=== PATIENT | female | born 1965 | race Caucasian/White ===

== ENCOUNTER → 2018-06-04 | Outpatient (CLI) | payer BC ==
--- NOTE | 2018-06-06 17:33 | MR ---
MR left hip HISTORY: Left hip pain Multiplanar multisequence imaging through the left hip. Bone marrow signal is maintained. No sizable joint effusion. Mild fluid signal present at the level o f the greater trochanters is noted on T2-weighted sequences, slightly greater on the right than on th e left, there may be bursitis or moderate luteal tendinosis. Suspect partial insertional tears of the gluteus medius insertions bilaterally, 5 mm on the left and 8 mm on the right on axial fat suppressi on image #9. Small bony excrescence is noted the junction of the femoral neck and femoral head on coronal cone-mulu n image #10 could possibly be related to femoral acetabular impingement. Sacroiliac joints are symmetric and maintained. No evident spinal stenosis at the lumbosacral junctio n. Articular cartilage signal is maintained. Acetabular labrum on the left shows on sagittal image #1 6 and 17 and coronal image 9 some increased signal suggestive of tear. IMPRESSION: Constellation of findings described above to include possible labral tear, correlate for femoral acetabular impingement, possible gluteal insertional tears or trochanteric bursitis.
== END | disposition home or self-care (01) ==
LOC: RADMRIMAIN 15:32
PROVIDERS: ATTEND Orthopaedic Surgery
DX: M25.552 Pain in left hip (principal)

== ENCOUNTER 2018-10-24 16:47 | Emergency (ER) | payer BC ==
--- NOTE | 2018-10-24 18:22 | ED ---
General Adult HPI - General Chief complaint: Nausea/Vomiting/Diarrhea Stated complaint: Diarrhea Time Seen by Provider: 10/24/18 17:48 Source: patient, RN notes reviewed, old records reviewed Mode of arrival: ambulatory Limitations: no limitations - History of Present Illness Initial comments: 53-year-old female patient with past medical history of pelvic sling procedure, otherwise no pertinent past medical history presents to ED with 5 days of diarrhea. Patient reports that her stools are watery, reports that she has approximately 2 per day. Patient denies any blood in stools. Patient denies any abdominal pain. Patient denies any nausea or vomiting. Patient denies any fevers or chills. Patient denies any chest pain or shortness of breath. Patient denies all other complaints. Systemic: Pt denies fatigue, myalgia, fever/chills, rash. Pt denies weakness, night sweats, weight loss. Neuro: Pt denies headache, visual disturbances, syncope or pre-syncope. HEENT: Pt denies ocular discharge or irritation, otalgia, rhinorrhea, pharyngitis or notable lymphadenopathy. Cardiopulmonary: Pt denies chest pain, SOB, heart palpitations, dyspnea on exertion. Abdominal/GI: Pt denies abdominal pain, n/v/. : Pt denies dysuria, burning w/ urination, frequency/urgency. Denies new onset urinary or bowel incontinence. MSK: Pt denies myalgia, loss of strength or function in extremities. Neuro: Pt denies new onset weakness, paresthesias. - Related Data Home Medications Medication Instructions Recorded Confirmed Cholecalciferol [Vitamin D3] 1,000 unit PO DAILY 10/24/18 10/24/18 Allergies Allergy/AdvReac Type Severity Reaction Status Date / Time No Known Allergies Allergy Verified 10/24/18 18:34 Review of Systems ROS Statement: Those systems with pertinent positive or pertinent negative responses have been documented in the HPI. ROS Other: All systems not noted in ROS Statement are negative. Past Medical History Past Medical History: No Reported History History of Any Multi-Drug Resistant Organisms: None Reported Past Surgical History: No Surgical Hx Reported Past Psychological History: No Psychological Hx Reported Smoking Status: Never smoker Past Alcohol Use History: Occasional Past Drug Use History: None Reported General Exam - General Exam Comments Initial Comments: Constitutional: NAD, AOX3, Pt has pleasant affect. HEENT: NC/AT, trachea midline, neck supple, no lymphadenopathy. Posterior pharynx non erythematous, without exudates. External ears appear normal, without discharge. Mucous membranes moist. Eyes PERRLA, EOM intact. There is no scleral icterus. No pallor noted. Cardiopulmonary: RRR, no murmurs, rubs or gallops, no JVD noted. Lungs CTAB in anterior and posterior fuentes. No peripheral edema. Abdominal exam: Abdomen soft and non-distended. Abdomen non-tender to palpation in all 4 quadrants. Bowel sounds active in LLQ. No hepatosplenomegaly. No ecchymosis Neuro: CN II-XII grossly intact. No nuchal rigidity. MSK: No posterior calf tenderness bilaterally, homans sign negative bilaterally. Posterior tibialis and radial pulse +2 bilaterally. Sensation intact in upper and lower extremities. Full active ROM in upper and lower extremities, 5/5 stregnth. Limitations: no limitations Course Vital Signs 10/24/18 10/24/18 10/24/18 16:54 18:49 21:04 Temperature 98 F 98.2 F Pulse Rate 82 70 62 Respiratory 16 18 16 Rate Blood Pressure 130/70 124/85 123/84 O2 Sat by Pulse 99 98 97 Oximetry Medical Decision Making - Medical Decision Making 53-year-old female patient with past medical history of pelvic sling procedure, otherwise no pertinent past medical history presents to ED with 5 days of diarrhea. Patient reports that her stools are watery, reports that she has approximately 2 per day. Patient denies any blood in stools. Patient denies any abdominal pain. Patient denies any nausea or vomiting. Patient denies any fevers or chills. Patient denies any chest pain or shortness of breath. Patient denies all other complaints. Pt VSS, afebrile. Physical exam did not display acute pathology, abdomen nontender to palpation. Laboratory investigations revealed nonimpressive CBC, CMP. Occult blood negative. Fecal culture and leukocytes pending. Patient did have formed stool in ED. Due to still being formed patient unable to be tested for Clostridium difficile. KUB displayed a nonacute abdomen. Long discussion with patient about causes of diarrhea, dietary modifications. Patient verbalized understanding. Patient to be discharged with follow-up with primary care provider in 1-2 days for continued evaluation. Patient given GI consult if symptoms continue. Patient to return to ED if condition worsens in any way. Case discussed with Dr. Connolly. - Lab Data Result diagrams: 10/24/18 18:42 10/24/18 18:42 Lab Results 10/24/18 10/24/18 10/24/18 Range/Units 18:42 18:42 20:25 WBC 5.1 (3.8-10.6) k/uL RBC 4.45 (3.80-5.40) m/uL Hgb 13.8 (11.4-16.0) gm/dL Hct 43.0 (34.0-46.0) % MCV 96.6 (80.0-100.0) fL MCH 31.0 (25.0-35.0) pg MCHC 32.0 (31.0-37.0) g/dL RDW 12.9 (11.5-15.5) % Plt Count 218 (150-450) k/uL Neutrophils % 52 % Lymphocytes % 34 % Monocytes % 6 % Eosinophils % 3 % Basophils % 1 % Neutrophils # 2.7 (1.3-7.7) k/uL Lymphocytes # 1.8 (1.0-4.8) k/uL Monocytes # 0.3 (0-1.0) k/uL Eosinophils # 0.1 (0-0.7) k/uL Basophils # 0.0 (0-0.2) k/uL Sodium 141 (137-145) mmol/L Potassium 4.1 (3.5-5.1) mmol/L Chloride 107 (98-107) mmol/L Carbon Dioxide 27 (22-30) mmol/L Anion Gap 7 mmol/L BUN 14 (7-17) mg/dL Creatinine 0.58 (0.52-1.04) mg/dL Est GFR (CKD-EPI)AfAm >90 (>60 ml/min/1.73 sqM) Est GFR (CKD-EPI)NonAf >90 (>60 ml/min/1.73 sqM) Glucose 106 H (74-99) mg/dL Calcium 9.4 (8.4-10.2) mg/dL Total Bilirubin 0.3 (0.2-1.3) mg/dL AST 26 (14-36) U/L ALT 30 (9-52) U/L Alkaline Phosphatase 78 (38-126) U/L Total Protein 6.7 (6.3-8.2) g/dL Albumin 4.1 (3.5-5.0) g/dL Stool Occult Blood Negative (Negative) Disposition Clinical Impression: Diarrhea Disposition: HOME SELF-CARE Condition: Stable Instructions (If sedation given, give patient instructions): Acute Diarrhea (ED ), Chronic Diarrhea (ED), Nutrition Tips for Relief of Diarrhea (ED) Additional Instructions: Patient to adhere to previously discussed treatment plan and will take medication(s) as directed. Patient to follow up with PCP in 1-2 days. Patient to return to ED if symptoms do not improve. Please follow-up with primary care provider for continued evaluation. Please call GI consult if symptoms continue. Is patient prescribed a controlled substance at d/c from ED?: No Referrals: None,Stated [Primary Care Provider] - 1-2 days Antonio Thrasher MD [STAFF PHYSICIAN] - 1-2 days
[2018-10-24 19:19] LABS: ALT 30 U/L (9-52); AST 26 U/L (14-36); Albumin 4.1 g/dL (3.5-5.0); Alkaline Phosphatase 78 U/L (38-126); Anion Gap 7 mmol/L; Blood Urea Nitrogen 14 mg/dL (7-17); Calcium 9.4 mg/dL (8.4-10.2); Carbon Dioxide 27 mmol/L (22-30); Chloride 107 mmol/L (98-107); Glucose 106 mg/dL (74-99); Potassium 4.1 mmol/L (3.5-5.1); Sodium 141 mmol/L (137-145); Total Bilirubin 0.3 mg/dL (0.2-1.3); Total Protein 6.7 g/dL (6.3-8.2)
[2018-10-24 19:20] LABS: Basophils % (A) 1 %; Eosinophils # (A) 0.1 k/uL (0-0.7); Eosinophils % (A) 3 %; HGB 13.8 gm/dL (11.4-16.0); Lymphocytes # (A) 1.8 k/uL (1.0-4.8); Lymphocytes % (A) 34 %; MCV 96.6 fL (80.0-100.0); Mean Platelet Volume 7.6; Monocytes # (A) 0.3 k/uL (0-1.0); Monocytes % (A) 6 %; Neutrophils # (A) 2.7 k/uL (1.3-7.7); Neutrophils % (A) 52 %; Platelet Count 218 k/uL (150-450); RBC 4.45 m/uL (3.80-5.40); RDW 12.9 % (11.5-15.5); WBC 5.1 k/uL (3.8-10.6)
--- NOTE | 2018-10-24 19:24 | XR ---
Abdomen single view History diarrhea. Comparison none. FINDINGS: There is no sign of intestinal obstruction or pneumoperitoneum. Fecal pattern is normal. Lung bases a re clear. IMPRESSION: Nonacute abdomen.
[2018-10-24 21:06] VITALS: BP 123/84; PULSE 62; RESP 16; TEMP 98.2
== END 2018-10-24 21:10 | disposition home or self-care (01) ==
LOC: EC 16:47
DX: R19.7 Diarrhea, unspecified (principal)
CPT/HCPCS: 36415; 74018; 80053; 82272; 83630; 85025; 87045; 87046; 99284

== ENCOUNTER 2018-12-02 05:31 | Emergency (ER) | payer BC ==
[2018-12-02] MEDS ORDERED: SODIUM CHLORIDE 0.9% 500 ML 500 ML IV STA (05:59)
[2018-12-02] MEDS ORDERED: MORPHINE SULFATE 4 MG/ML SYRINGE IV STA (05:59)
--- NOTE | 2018-12-02 06:01 | ED ---
Abdominal Pain HPI - General Source: patient Mode of arrival: ambulatory Limitations: no limitations - History of Present Illness MD Complaint: abdominal pain Onset/Timin -: hour(s) Location: LLQ Radiation: none Migration to: no migration Severity: moderate Quality: burning Consistency: constant Improves With: nothing Worsens With: nothing Associated Symptoms: anorexia <Tono Ross - Last Filed: 12/02/18 06:15> <James Turner - Last Filed: 12/02/18 08:50> - General Chief Complaint: Abdominal Pain Stated Complaint: abd pain Time Seen by Provider: 12/02/18 05:41 - History of Present Illness Initial Comments: This patient is a 53-year-old woman who presents to be evaluated for left lower quadrant pain that has been going on for nearly 24 hours now. The patient describes it as being constant, burning in character, moderately severe. She has not noted worsening or relieving factors. She states that it feels like her appetite has also been depressed since this came on. She has not noted other associated symptoms. (Tono Ross) - Related Data Previous Rx's Medication Instructions Recorded Dicyclomine [Bentyl] 10 mg PO TID #10 capsule 12/02/18 Ibuprofen [Motrin] 600 mg PO Q6HR PRN #20 tab 12/02/18 Allergies Allergy/AdvReac Type Severity Reaction Status Date / Time No Known Allergies Allergy Verified 12/02/18 07:24 Review of Systems ROS Other: All systems not noted in ROS Statement are negative. Constitutional: Denies: fever, chills Respiratory: Denies: cough, dyspnea Cardiovascular: Denies: chest pain, palpitations Gastrointestinal: Reports: abdominal pain. Denies: vomiting, diarrhea, constipation Genitourinary: Denies: dysuria, hematuria, discharge Musculoskeletal: Denies: back pain Skin: Denies: rash Neurological: Denies: headache <Tono Ross - Last Filed: 12/02/18 06:15> ROS Other: All systems not noted in ROS Statement are negative. <James Turner - Last Filed: 12/02/18 08:50> ROS Statement: Those systems with pertinent positive or pertinent negative responses have been documented in the HPI. Past Medical History Past Medical History: No Reported History History of Any Multi-Drug Resistant Organisms: None Reported Past Surgical History: No Surgical Hx Reported Past Psychological History: No Psychological Hx Reported Smoking Status: Never smoker Past Alcohol Use History: Rare Past Drug Use History: None Reported <VandanaTono - Last Filed: 12/02/18 06:15> General Exam Limitations: no limitations General appearance: alert, in no apparent distress Head exam: Present: atraumatic, normocephalic Eye exam: Present: normal appearance. Absent: scleral icterus, conjunctival injection ENT exam: Present: normal oropharynx Neck exam: Present: normal inspection Respiratory exam: Present: normal lung sounds bilaterally. Absent: respiratory distress, wheezes, rales, rhonchi, stridor Cardiovascular Exam: Present: regular rate, normal rhythm, normal heart sounds. Absent: systolic murmur, diastolic murmur, rubs, gallop GI/Abdominal exam: Present: soft, normal bowel sounds. Absent: distended, tenderness, guarding, rebound, rigid, mass Extremities exam: Present: normal inspection, normal capillary refill. Absent: pedal edema, calf tenderness Back exam: Present: normal inspection. Absent: CVA tenderness (R), CVA tenderness (L) Neurological exam: Present: alert Skin exam: Present: warm, dry, intact, normal color. Absent: rash <Tono Ross - Last Filed: 12/02/18 06:15> Course Vital Signs 12/02/18 12/02/18 12/02/18 05:34 07:06 08:35 Temperature 98.7 F 99.0 F Pulse Rate 82 71 62 Respiratory 18 20 18 Rate Blood Pressure 126/85 115/78 118/85 O2 Sat by Pulse 97 97 96 Oximetry Medical Decision Making - Lab Data Result diagrams: 12/02/18 06:16 12/02/18 06:16 - Radiology Data Radiology results: report reviewed (I did review the imaging and report evidence of fluid in the proximal colon suggestive of diarrheal state nonspecific ente ritis enterocolitis no bowel obstruction no evidence of acute appendicitis.), image reviewed <James Turner - Last Filed: 12/02/18 08:50> - Medical Decision Making The patient is so much improved this time I did discuss findings with her family. Patient's care was endorsed me by Dr. Ross at our shift change pending CAT scan results. CAT scan report patient is feeling much improved at this time she'll be placed on appropriate medication for discharge and follow-up with her doctor. She was warned that she may start developing diarrhea. She's not had thus far. was reviewed with the family. No evidence of diverticulitis at this time (James Turner) - Lab Data Lab Results 12/02/18 12/02/18 12/02/18 Range/Units 05:38 06:16 06:16 WBC 5.4 (3.8-10.6) k/uL RBC 4.49 (3.80-5.40) m/uL Hgb 13.8 (11.4-16.0) gm/dL Hct 41.1 (34.0-46.0) % MCV 91.6 D (80.0-100.0) fL MCH 30.7 (25.0-35.0) pg MCHC 33.5 (31.0-37.0) g/dL RDW 13.2 (11.5-15.5) % Plt Count 221 (150-450) k/uL Neutrophils % 76 % Lymphocytes % 12 % Monocytes % 5 % Eosinophils % 6 % Basophils % 0 % Neutrophils # 4.1 (1.3-7.7) k/uL Lymphocytes # 0.7 L (1.0-4.8) k/uL Monocytes # 0.3 (0-1.0) k/uL Eosinophils # 0.3 (0-0.7) k/uL Basophils # 0.0 (0-0.2) k/uL Sodium 136 L (137-145) mmol/L Potassium 3.7 (3.5-5.1) mmol/L Chloride 105 (98-107) mmol/L Carbon Dioxide 23 (22-30) mmol/L Anion Gap 8 mmol/L BUN 13 (7-17) mg/dL Creatinine 0.60 (0.52-1.04) mg/dL Est GFR (CKD-EPI)AfAm >90 (>60 ml/min/1.73 sqM) Est GFR (CKD-EPI)NonAf >90 (>60 ml/min/1.73 sqM) Glucose 105 H (74-99) mg/dL Calcium 9.4 (8.4-10.2) mg/dL Total Bilirubin 0.9 (0.2-1.3) mg/dL AST 22 (14-36) U/L ALT 29 (9-52) U/L Alkaline Phosphatase 75 (38-126) U/L C-Reactive Protein 9.5 (<10.0) mg/L Total Protein 6.3 (6.3-8.2) g/dL Albumin 3.9 (3.5-5.0) g/dL Amylase <30 L (30-110) U/L Lipase 89 (23-300) U/L Urine Color Light Yellow Urine Appearance Clear (Clear) Urine pH 5.5 (5.0-8.0) Ur Specific [place] 1.007 (1.001-1.035) Urine Protein Negative (Negative) Urine Glucose (UA) Negative (Negative) Urine Ketones Negative (Negative) Urine Blood Negative (Negative) Urine Nitrite Negative (Negative) Urine Bilirubin Negative (Negative) Urine Urobilinogen <2.0 (<2.0) mg/dL Ur Leukocyte Esterase Negative (Negative) Disposition <Tono Ross - Last Filed: 12/02/18 06:15> Is patient prescribed a controlled substance at d/c from ED?: No <James Turner - Last Filed: 12/02/18 08:50> Clinical Impression: Abdominal pain, Enteritis, Spastic colon Disposition: HOME SELF-CARE Condition: Good Instructions (If sedation given, give patient instructions): Abdominal Pain (ED), Enteritis (ED), Irritable Bowel Syndrome (ED) Prescriptions: Dicyclomine [Bentyl] 10 mg PO TID #10 capsule Ibuprofen [Motrin] 600 mg PO Q6HR PRN #20 tab PRN Reason: Pain Referrals: None,Stated [Primary Care Provider] - 1-2 days
[2018-12-02 06:25] LABS: Basophils % (A) 0 %; Eosinophils # (A) 0.3 k/uL (0-0.7); Eosinophils % (A) 6 %; HCT 41.1 % (34.0-46.0); HGB 13.8 gm/dL (11.4-16.0); Lymphocytes # (A) 0.7 k/uL (1.0-4.8); Lymphocytes % (A) 12 %; MCH 30.7 pg (25.0-35.0); MCHC 33.5 g/dL (31.0-37.0); Mean Platelet Volume 8.1; Monocytes # (A) 0.3 k/uL (0-1.0); Monocytes % (A) 5 %; Neutrophils # (A) 4.1 k/uL (1.3-7.7); Neutrophils % (A) 76 %; Platelet Count 221 k/uL (150-450); RBC 4.49 m/uL (3.80-5.40); RDW 13.2 % (11.5-15.5); WBC 5.4 k/uL (3.8-10.6)
[2018-12-02 06:25] LABS: Appearance,Urine Clear (Clear); Bilirubin,Urine Negative (Negative); Blood,Urine Negative (Negative); Color,Urine Light Yellow; Glucose,Urine (UA) Negative (Negative); Ketones,Urine Negative (Negative); Leukocyte Esterase,Urine Negative (Negative); Nitrite,Urine Negative (Negative); PH, Urine 5.5 (5.0-8.0); Protein,Urine Negative (Negative); Specific Gravity,Urine 1.007 (1.001-1.035); Urobilinogen,Urine <2.0 mg/dL (<2.0)
[2018-12-02 06:26] LABS: MCV 91.6 fL (80.0-100.0)
[2018-12-02 06:36] LABS: ALT 29 U/L (9-52); AST 22 U/L (14-36); Albumin 3.9 g/dL (3.5-5.0); Alkaline Phosphatase 75 U/L (38-126); Amylase <30 U/L (30-110); Anion Gap 8 mmol/L; Blood Urea Nitrogen 13 mg/dL (7-17); C Reactive Protein 9.5 mg/L (<10.0); Calcium 9.4 mg/dL (8.4-10.2); Carbon Dioxide 23 mmol/L (22-30); Chloride 105 mmol/L (98-107); Glucose 105 mg/dL (74-99); Lipase 89 U/L (23-300); Potassium 3.7 mmol/L (3.5-5.1); Sodium 136 mmol/L (137-145); Total Bilirubin 0.9 mg/dL (0.2-1.3); Total Protein 6.3 g/dL (6.3-8.2)
[2018-12-02] MEDS ORDERED: KETOROLAC 30 MG/ML 1 ML VIAL IVP STA (08:00)
--- NOTE | 2018-12-02 08:11 | CT ---
EXAM: CT Abdomen and Pelvis Without Intravenous Contrast CLINICAL HISTORY: Pain. Left sided abdominal pain since yesterday. TECHNIQUE: Axial computed tomography images of the abdomen and pelvis without intravenous contrast. Coronal and sagittal reformatted images were created and reviewed. CTDI is 5.9 mGy and DLP is 316.1 mGy-cm. This CT exam was performed using one or more of the following dose reduction techniques: automated exposure control, adjustment of the mA and/or kV according to patient size, and/or use of iterative reconstruction technique. COMPARISON: No relevant prior studies available. FINDINGS: Lung bases: Unremarkable. No mass. No consolidation. ABDOMEN: Liver: Unremarkable. Gallbladder and bile ducts: Unremarkable. No radiopaque calculi. No biliary ductal dilation. Pancreas: Unremarkable. No ductal dilation. No adjacent inflammatory changes. Spleen: Unremarkable. No splenomegaly. Adrenals: Unremarkable. No mass. Kidneys and ureters: Unremarkable. No obstructing calculi. No hydronephrosis. Stomach and bowel: Fluid in the proximal colon suggestive of diarrheal state. No bowel obstruction. No significant bowel wall thickening. PELVIS: Appendix: No findings to suggest acute appendicitis. Bladder: Unremarkable. No calculi or wall thickening. Reproductive: Unremarkable as visualized. ABDOMEN and PELVIS: Intraperitoneal space: Unremarkable. No free air. No significant fluid collection. Bones/joints: No acute fracture. No dislocation. Soft tissues: Unremarkable. Vasculature: Unremarkable. No abdominal aortic aneurysm. Lymph nodes: Unremarkable. No enlarged lymph nodes. IMPRESSION: 1. Fluid in the proximal colon suggestive of diarrheal state which may be related to nonspecific enteritis/enterocolitis. Correlate clinically. 2. No bowel obstruction, significant bowel wall thickening, free fluid or free air. 3. No evidence of acute appendicitis.
[2018-12-02 08:35] VITALS: BP 118/85; PULSE 62; RESP 18; TEMP 99
== END 2018-12-02 09:00 | disposition home or self-care (01) ==
LOC: EC 05:31
DX: K52.9 Noninfective gastroenteritis and colitis, unspecified (principal)
CPT/HCPCS: 36415; 74176; 80053; 81003; 82150; 83690; 85025; 86140; 96361; 96374; 96375; 99284